=== PATIENT | male | born 1950 | race Caucasian/White ===

== ENCOUNTER 2016-05-19 09:41 | Inpatient (IN) | payer OTHER, MEDICARE ==
[~2016-05-19] VITALS: Ht 172.7 cm; Wt 83.9 kg
[2016-05-19 09:56] VITALS: BP 138/90; PULSE 76; RESP 16; TEMP 98.5; O2SAT 100
[2016-05-19] MEDS ORDERED: NACL 0.9% 1,000 ML IV ONE (10:15)
[2016-05-19 10:53] LABS: BASOPHILS % (AUTO) 0.4 % (0.0-2.0); EOSINOPHILS # (AUTO) 0.1 K/uL (0.0-0.4); EOSINOPHILS % (AUTO) 1.4 % (0.0-4.0); HEMATOCRIT 44.7 % (36-54); HEMOGLOBIN 14.6 g/dL (14.0-18.0); LYMPHOCYTES # (AUTO) 1.4 K/uL (1.0-5.5); LYMPHOCYTES % (AUTO) 18.7 % (20.5-51.5); MEAN CORPUSCULAR HEMOGLOBIN 27 pg (27-31); MEAN CORPUSCULAR HGB CONC 33 % (32-36); MEAN CORPUSCULAR VOLUME 82 fL (79.0-98.0); MONOCYTES # (AUTO) 0.5 K/uL (0.0-1.0); MONOCYTES % (AUTO) 6.5 % (1.7-9.3); NEUTROPHILS # (AUTO) 5.7 K/uL (1.8-7.7); PLATELET COUNT (AUTO) 182 K/uL (130-430); RED BLOOD CELL COUNT(AUTO) 5.46 MIL/uL (4.2-6.2); RED CELL DISTRIBUTION WIDTH 12.3 % (9.0-15.0); WHITE BLOOD COUNT (AUTO) 7.7 K/uL (4.8-10.8)
[2016-05-19 11:04] LABS: CALCIUM 9.6 mg/dL (8.4-11.0); CREATININE 2.09 mg/dL (0.55-1.30)
[2016-05-19 11:19] LABS: ALBUMIN 3.4 g/dL (3.4-4.8); TOTAL BILIRUBIN 0.3 mg/dL (0.0-1.0); TOTAL PROTEIN, SERUM 7.4 g/dL (6.4-8.3)
[2016-05-19] MEDS ORDERED: GLIP-172 PO (12:11)
[2016-05-19] MEDS ORDERED: CALC-1094 PO (12:11)
[2016-05-19] MEDS ORDERED: CHLO50TA18 PO (12:11)
[2016-05-19] MEDS ORDERED: SAXA2.5T PO (12:11)
[2016-05-19] MEDS ORDERED: CHOL2000 PO (12:11)
[2016-05-19] MEDS ORDERED: NPH,100V SUBCUT (12:11)
[2016-05-19] MEDS ORDERED: CLON1TAB4 PO (12:11)
[2016-05-19] MEDS ORDERED: ASPI-859 PO (12:11)
[2016-05-19] MEDS ORDERED: LOSA50TA20 PO (12:11)
[2016-05-19] MEDS ORDERED: COLE1TAB4 PO (12:11)
[2016-05-19] MEDS ORDERED: NOR10 PO (12:11)
[2016-05-19 13:41] VITALS: BP 161/83; PULSE 74; RESP 18; TEMP 98.6; O2SAT 97
[2016-05-19] MEDS: clonazePAM 0.5 MG TABLET PO SCH ×2 (15:26→21:00)
[2016-05-19 16:58] VITALS: BP 185/86; PULSE 71; RESP 15; TEMP 97.6; O2SAT 97
[2016-05-19] MEDS ORDERED: ATORVASTATIN 20 MG TABLET PO ONE (18:30)
[2016-05-19 20:00] VITALS: BP 157/77; PULSE 70; RESP 19; TEMP 99.1; O2SAT 95
[2016-05-19] MEDS: glipiZIDE XL 5 MG TAB ( GLUCOTROL XL) PO SCH (20:58)
[2016-05-19] MEDS: METOPROLOL TARTRATE 25 MG TABLET PO SCH (20:58)
[2016-05-19] MEDS ORDERED: COLESTIPOL HCL 1 GM PO SCH (21:00)
[2016-05-20 01:06] VITALS: BP 150/60; PULSE 58; RESP 18; TEMP 96.5; O2SAT 93
[2016-05-20 03:29] VITALS: BP 141/73; PULSE 58; RESP 18; TEMP 97.9; O2SAT 97
[2016-05-20] MEDS ORDERED: NPH,100V11 SUBCUT ×2 (03:42→03:43)
[2016-05-20 07:52] VITALS: BP 161/78; PULSE 75; RESP 18; TEMP 97.2; O2SAT 97
[2016-05-20] MEDS ORDERED: CHOLECALCIFEROL (VITAMIN D3) 2,000 UNIT TABLET PO SCH (09:00)
[2016-05-20] MEDS ORDERED: CHLORTHALIDONE 25 MG TABLET (HYGROTON) PO SCH (09:00)
[2016-05-20] MEDS ORDERED: amLODIPine BESYLATE 10 MG TABLET PO SCH (09:00)
[2016-05-20] MEDS ORDERED: CALCIUM CARBONATE/VITAMIN D3 1 TAB TABLET PO SCH (09:00)
[2016-05-20] MEDS ORDERED: SAXAGLIPTIN HYDROCHLORIDE 2.5 MG PO SCH (09:00)
[2016-05-20] MEDS ORDERED: LOSARTAN POTASSIUM 50 MG TABLET (COZAAR) PO SCH (09:00)
[2016-05-20] MEDS ORDERED: ATORVASTATIN 20 MG TABLET PO SCH (09:00)
[2016-05-20] MEDS ORDERED: INSULIN NPH 100 UNITS/ML 10 ML VIAL SUBCUT SCH (09:00)
[2016-05-20] MEDS ORDERED: ASPIRIN 81 MG TABLET(ECOTRIN) PO SCH (09:00)
[2016-05-20] MEDS: glipiZIDE XL 5 MG TAB ( GLUCOTROL XL) PO SCH (09:37)
[2016-05-20] MEDS: clonazePAM 0.5 MG TABLET PO SCH ×2 (09:37→15:15)
[2016-05-20] MEDS: METOPROLOL TARTRATE 25 MG TABLET PO SCH (09:39)
[2016-05-20 12:00] VITALS: BP 145/84; PULSE 55; RESP 18; TEMP 97; O2SAT 96
[2016-05-20] MEDS ORDERED: REGADENOSON 0.4 MG/5 ML SYRINGE IVP ONE (14:00)
[2016-05-20 16:00] VITALS: BP 137/68; PULSE 62; RESP 18; TEMP 98.2; O2SAT 98
== END 2016-05-20 18:05 | disposition home or self-care (01) | DRG 68 ==
LOC: SED 09:41 → SMU 12:25 → STU 13:30
PROVIDERS: ADMIT Family Medicine; ATTEND Family Medicine
DX: I65.21 Occlusion and stenosis of right carotid artery (principal); N17.9 Acute kidney failure, unspecified; E11.22 Type 2 diabetes mellitus with diabetic chronic kidney disease; I12.9 Hypertensive chronic kidney disease with stage 1 through stage 4 chronic kidney disease, or unspecified chronic kidney disease; E78.5 Hyperlipidemia, unspecified; F41.9 Anxiety disorder, unspecified; N18.9 Chronic kidney disease, unspecified; I25.10 Atherosclerotic heart disease of native coronary artery without angina pectoris; Z87.891 Personal history of nicotine dependence; Z88.8 Allergy status to other drugs, medicaments and biological substances
CPT/HCPCS: 36415; 70450-TC; 71010; 76770; 80053; 82962; 83036; 83605; 84484; 85025; 87040-TC; 93005; 93017; 93306; 93880; 96360; 99285; A9500; J1815; J2785; J7030

== ENCOUNTER 2016-12-27 14:47 | Emergency (ER) | payer OTHER, MEDICARE ==
[~2016-12-27] VITALS: Ht 175.3 cm; Wt 86.2 kg
[~2016-12-27 14:47] MED LIST: ASPI-859 PO; CALC-1094 PO; CHLO50TA18 PO; CHOL2000 PO; CLON1TAB4 PO; COLE1TAB4 PO; GLIP-172 PO; LOSA50TA20 PO; NOR10 PO; NPH,100V11 SUBCUT; SAXA2.5T PO
[2016-12-27 14:50] VITALS: BP_SYST 157
--- NOTE | 2016-12-27 15:38 | NUR ---
Patient to ED bed 3, gown on, placed on monitoring analyst, bp cuff and pulse ox to patient. Received report from JOSE Mayes.
--- NOTE | 2016-12-27 15:39 | NUR ---
DR BENJAMIN AT BEDSIDE FOR EVALUATION
--- NOTE | 2016-12-27 15:41 | NUR ---
Patient, awake, alert and oriented x 4, BIB from home for back pain. Patient presents right lower back pain x 1 week. Patient states he has had right lower back pain for the past week. Denies chest pain, shortness of breath, chills and fever at this time. No other complaints/injuries per patient, none noted.
[2016-12-27] MEDS: DEXAMETHASONE SOD PHOSPHATE 4 MG/ML VIAL IM ONE ×2 (16:15→16:56)
[2016-12-27] MEDS: BUPIVACAINE /PF 0.25% 30 ML VIAL INJ ONE ×2 (16:16→16:56)
--- NOTE | 2016-12-27 16:40 | NUR ---
Off unit to radiology.
--- NOTE | 2016-12-27 16:48 | NUR ---
Patient back to ED room 3 from radiology, tolerated well. No signs of distress, vss noted.
--- NOTE | 2016-12-27 16:55 | NUR ---
Dr. Yan at bedside administering medication.
--- NOTE | 2016-12-27 17:00 | NUR ---
Patient returned to unit, tolerated well. No signs of distress, vss noted.
[2016-12-27 18:33] VITALS: BP_SYST 152
--- NOTE | 2016-12-27 18:35 | NUR ---
Patient given written and verbal discharge instructions and verbalizes understanding. ER MD discussed with patient the results and treatment provided. Patient in stable condition. ID arm band removed. IV catheter removed intact and dressing applied, no active bleeding. Rx of Tylenol and Flexeril given. Patient educated on pain management and to follow up with PMD. Pain Scale 2/10. Opportunity for questions provided and answered.
== END 2016-12-27 18:33 | disposition home or self-care (01) ==
LOC: SED 14:47
DX: S39.012A Strain of muscle, fascia and tendon of lower back, initial encounter (principal); E11.9 Type 2 diabetes mellitus without complications; I10 Essential (primary) hypertension; E78.5 Hyperlipidemia, unspecified; Z79.4 Long term (current) use of insulin; X58.XXXA Exposure to other specified factors, initial encounter; Y93.89 Activity, other specified; Y92.89 Other specified places as the place of occurrence of the external cause; Y99.8 Other external cause status
CPT/HCPCS: 72131; 96372; 99284; J1100; J3490

== ENCOUNTER 2016-12-28 09:45 | Emergency (ER) | payer OTHER, MEDICARE ==
[~2016-12-28] VITALS: Ht 175.3 cm; Wt 86.2 kg
[2016-12-28 09:45] VITALS: BP_SYST 143
[2016-12-28 11:22] VITALS: BP_SYST 143
== END 2016-12-28 11:22 | disposition home or self-care (01) ==
LOC: SED 09:45
DX: M54.30 Sciatica, unspecified side (principal); E11.9 Type 2 diabetes mellitus without complications; I10 Essential (primary) hypertension; E78.5 Hyperlipidemia, unspecified; Z79.4 Long term (current) use of insulin; Z79.899 Other long term (current) drug therapy
CPT/HCPCS: 99281

== ENCOUNTER 2016-12-29 05:44 | Emergency (ER) | payer OTHER, MEDICARE ==
[~2016-12-29] VITALS: Ht 175.3 cm; Wt 86.2 kg
[2016-12-29 05:53] VITALS: BP_SYST 155
--- NOTE | 2016-12-29 05:53 | NUR ---
Patient to ER bed 8 to gown for evaluation. Side rails up. Report given to JOSE BENSON.
--- NOTE | 2016-12-29 06:00 | NUR ---
Patient to ER C/O severe 10/10 low back pain right side. Patient states that she wa sseen in [facility] ER and was promised nerve block shots. Patient ambulated with steady gait to ER bed. AAOx4, unlabored breathing, no signs of acute distress.
--- NOTE | 2016-12-29 06:09 | NUR ---
ER Osea at bedside evaluating the patient
[2016-12-29] MEDS ORDERED: BUPIVACAINE /PF 0.25% 30 ML VIAL INJ ONE (06:45)
[2016-12-29] MEDS ORDERED: DEXAMETHASONE SOD PHOSPHATE 4 MG/ML VIAL IM ONE (06:45)
--- NOTE | 2016-12-29 07:24 | NUR ---
Patient reports pain 0/10 15 minutes after administration of Decadron & Marcaine. No adverse reactions noted. Will continue to monitor.
[2016-12-29 07:25] VITALS: BP_SYST 134
--- NOTE | 2016-12-29 07:25 | NUR ---
Patient given written and verbal discharge instructions and verbalizes understanding. ER MD Yan discussed with patient the results and treatment provided. Patient in stable condition. ID arm band removed. Patient educated on pain management and to follow up with PMD. Pain Scale 0/10. Opportunity for questions provided and answered.
== END 2016-12-29 07:25 | disposition home or self-care (01) ==
LOC: SED 05:44
DX: G89.29 Other chronic pain (principal); M54.5 Low back pain; E11.9 Type 2 diabetes mellitus without complications; I10 Essential (primary) hypertension; E78.5 Hyperlipidemia, unspecified; Z79.899 Other long term (current) drug therapy
CPT/HCPCS: 93005; 96372; 99283; J1100; J3490

== ENCOUNTER 2016-12-31 05:34 | Emergency (ER) | payer OTHER, MEDICARE ==
[~2016-12-31] VITALS: Ht 175.3 cm; Wt 86.2 kg
[2016-12-31 05:38] VITALS: BP_SYST 179
--- NOTE | 2016-12-31 05:39 | NUR ---
Placed in room 07. To gown for exam. Side rails up. Report given to JOSE Mckinney.
--- NOTE | 2016-12-31 05:40 | NUR ---
Patient AAOx4, ambulatory with steady gait. Patient states having pain to right lower back which extends down to right foot. Patient states pain is sharp sensation with pain scale 7/10, states pain has been present for approximately 1 month prior to ER visit. Patient denies any mechanism of injury to pain area. Patient denies any other complaints.
--- NOTE | 2016-12-31 05:43 | NUR ---
ER Dr. Yan at bedside examining patient.
[2016-12-31] MEDS ORDERED: DEXAMETHASONE SOD PHOSPHATE 4 MG/ML VIAL IM ONE (06:00)
[2016-12-31] MEDS ORDERED: BUPIVACAINE /PF 0.25% 30 ML VIAL INJ ONE (06:00)
--- NOTE | 2016-12-31 06:01 | NUR ---
IM injection administered by MD. Patient tolerated procedure well.
[2016-12-31 06:11] VITALS: BP_SYST 162
--- NOTE | 2016-12-31 06:11 | NUR ---
Patient given written and verbal discharge instructions and verbalizes understanding. ER MD discussed with patient the results and treatment provided. Patient in stable condition. ID arm band removed. Patient educated on pain management and to follow up with PMD. Pain Scale 0/10. Opportunity for questions provided and answered.
== END 2016-12-31 06:11 | disposition home or self-care (01) ==
LOC: SED 05:34
DX: G89.29 Other chronic pain (principal); M54.5 Low back pain; E11.9 Type 2 diabetes mellitus without complications; I10 Essential (primary) hypertension; E78.5 Hyperlipidemia, unspecified; Z88.8 Allergy status to other drugs, medicaments and biological substances; Z79.4 Long term (current) use of insulin; Z79.899 Other long term (current) drug therapy
CPT/HCPCS: 20552; 99284; J1100

== ENCOUNTER 2018-09-09 19:51 | Inpatient (IN) | payer MEDICARE, OTHER ==
[~2018-09-09] VITALS: Ht 175.3 cm; Wt 86.8 kg
[~2018-09-09 19:51] MED LIST changes: +CHLO50TA PO; -CHLO50TA18 PO; +CLON1TAB12 PO; -CLON1TAB4 PO; -GLIP-172 PO; +GLIP10TA21 PO; -LOSA50TA20 PO; +LOSA50TA28 PO
[2018-09-09 19:55] VITALS: BP_SYST 197
[2018-09-09] MEDS ORDERED: NACL 0.9% 1,000 ML IV ONE (22:35)
[2018-09-09] MEDS ORDERED: PANTOPRAZOLE SODIUM 40 MG/VIAL (PROTONIX) IVP ONE (22:45)
[2018-09-09] MEDS ORDERED: MAG-AL HYDROX/SIMETH 30 ML UDC PO ONE (22:45)
[2018-09-09] MEDS ORDERED: DICYCLOMINE HCL 10 MG/5 ML SOLUTION PO ONE (22:45)
[2018-09-09] MEDS ORDERED: LIDOCAINE VISCOUS 2%, 15 ML UDC MM ONE (22:45)
[2018-09-09 23:04] LABS: BASOPHILS % (AUTO) 0.4 % (0.0-2.0); EOSINOPHILS # (AUTO) 0.1 K/uL (0.0-0.4); EOSINOPHILS % (AUTO) 0.6 % (0.0-4.0); HEMATOCRIT 41.8 % (36-54); HEMOGLOBIN 13.8 g/dL (14.0-18.0); LYMPHOCYTES # (AUTO) 2.1 K/uL (1.0-5.5); LYMPHOCYTES % (AUTO) 18.7 % (20.5-51.5); MEAN CORPUSCULAR HEMOGLOBIN 28 pg (27-31); MEAN CORPUSCULAR HGB CONC 33 % (32-36); MEAN CORPUSCULAR VOLUME 83 fL (79.0-98.0); MONOCYTES # (AUTO) 0.7 K/uL (0.0-1.0); MONOCYTES % (AUTO) 6.5 % (1.7-9.3); NEUTROPHILS # (AUTO) 8.1 K/uL (1.8-7.7); NEUTROPHILS % (AUTO) 73.8 % (40.0-70.0); PLATELET COUNT (AUTO) 261 K/uL (130-430); RED BLOOD CELL COUNT(AUTO) 5.01 MIL/uL (4.2-6.2); RED CELL DISTRIBUTION WIDTH 13.7 % (9.0-15.0)
[2018-09-09 23:16] LABS: POTASSIUM 3.8 mmol/L (3.5-5.1)
[2018-09-09 23:28] LABS: CALCIUM 10.4 mg/dL (8.4-11.0); CREATININE 1.91 mg/dL (0.55-1.30)
[2018-09-09 23:36] LABS: ALBUMIN 3.5 g/dL (3.4-4.8); TOTAL BILIRUBIN 0.4 mg/dL (0.0-1.0)
[2018-09-09] MEDS ORDERED: ASPIRIN 81 MG TAB.CHEW PO ONE (23:45)
[2018-09-10] MEDS ORDERED: LIP40 PO (00:27)
[2018-09-10] MEDS ORDERED: ONDANSETRON HCL 4 MG/2 ML VIAL IVP PRN (00:30)
[2018-09-10] MEDS ORDERED: ACETAMINOPHEN 325 MG TABLET PO PRN (00:30)
[2018-09-10] MEDS ORDERED: FINA5TAB3 PO (00:30)
[2018-09-10] MEDS ORDERED: MORPHINE 2 MG/ML INJ. SYRINGE IVP PRN (00:30)
[2018-09-10 01:03] VITALS: BP_SYST 157
[2018-09-10] MEDS ORDERED: TEMAZEPAM 15 MG CAPSULE PO PRN (02:15)
[2018-09-10 07:41] VITALS: BP_SYST 142
[2018-09-10] MEDS ORDERED: INSULIN REGULAR, HUMAN 100 UNITS/ML, 10 ML VIAL (novoLIN R) SUBCUT PRN (08:30)
[2018-09-10 08:32] LABS: CALCIUM 9.7 mg/dL (8.4-11.0); CREATININE 1.83 mg/dL (0.55-1.30)
[2018-09-10 08:37] LABS: BASOPHILS % (AUTO) 0.5 % (0.0-2.0); EOSINOPHILS # (AUTO) 0.1 K/uL (0.0-0.4); EOSINOPHILS % (AUTO) 1.3 % (0.0-4.0); HEMATOCRIT 41.5 % (36-54); HEMOGLOBIN 13.7 g/dL (14.0-18.0); LYMPHOCYTES # (AUTO) 1.9 K/uL (1.0-5.5); LYMPHOCYTES % (AUTO) 20.1 % (20.5-51.5); MEAN CORPUSCULAR HEMOGLOBIN 28 pg (27-31); MEAN CORPUSCULAR HGB CONC 33 % (32-36); MEAN CORPUSCULAR VOLUME 83 fL (79.0-98.0); MONOCYTES # (AUTO) 0.7 K/uL (0.0-1.0); MONOCYTES % (AUTO) 7.5 % (1.7-9.3); NEUTROPHILS # (AUTO) 6.6 K/uL (1.8-7.7); NEUTROPHILS % (AUTO) 70.6 % (40.0-70.0); PLATELET COUNT (AUTO) 252 K/uL (130-430); RED BLOOD CELL COUNT(AUTO) 4.98 MIL/uL (4.2-6.2); RED CELL DISTRIBUTION WIDTH 13.8 % (9.0-15.0); WHITE BLOOD COUNT (AUTO) 9.4 K/uL (4.8-10.8)
[2018-09-10 08:41] LABS: ALBUMIN 3.3 g/dL (3.4-4.8); TOTAL BILIRUBIN 0.3 mg/dL (0.0-1.0)
[2018-09-10] MEDS: ENOXAPARIN SODIUM 40 MG/0.4 ML SYRINGE SUBCUT SCH (08:56)
[2018-09-10] MEDS ORDERED: GLUCOSE 15 GM GEL (in 37.5 GM TUBE) PO PRN (09:00)
[2018-09-10] MEDS: CHLORTHALIDONE 25 MG TABLET (HYGROTON) PO SCH (09:00)
[2018-09-10] MEDS ORDERED: DEXTROSE 50%-WATER 50 ML DISP.SYRIN IVP PRN (09:00)
[2018-09-10] MEDS ORDERED: D5W 1,000 ML IV PRN (09:00)
[2018-09-10] MEDS ORDERED: PANTOPRAZOLE SODIUM 40 MG/VIAL (PROTONIX) IVP ONE (09:00)
[2018-09-10] MEDS: ASPIRIN 81 MG TAB.CHEW PO SCH (09:00)
[2018-09-10] MEDS ORDERED: ASPIRIN 325 MG TABLET (ECOTRIN) PO SCH (09:00)
[2018-09-10] MEDS: ATORVASTATIN 20 MG TABLET PO SCH (10:22)
[2018-09-10] MEDS: amLODIPine BESYLATE 10 MG TABLET PO SCH (10:24)
[2018-09-10] MEDS: clonazePAM 0.5 MG TABLET PO SCH ×3 (10:25→20:05)
[2018-09-10] MEDS: LOSARTAN POTASSIUM 50 MG TABLET (COZAAR) PO SCH ×2 (10:25→20:05)
[2018-09-10] MEDS: glipiZIDE XL 5 MG TAB ( GLUCOTROL XL) PO SCH ×2 (10:26→20:05)
[2018-09-10] MEDS: FINASTERIDE 5 MG TABLET (PROSCAR) PO SCH (10:26)
[2018-09-10] MEDS: INSULIN NPH 100 UNITS/ML 10 ML VIAL SUBCUT SCH (10:47)
[2018-09-10 11:10] VITALS: BP_SYST 147
[2018-09-10 15:43] VITALS: BP_SYST 144
[2018-09-10] MEDS ORDERED: INSULIN NPH 100 UNITS/ML 10 ML VIAL SUBCUT SCH (18:00)
[2018-09-10 20:00] VITALS: BP_SYST 159
[2018-09-10] MEDS: CARVEDILOL 3.125 MG TABLET (COREG) PO SCH (20:04)
[2018-09-11 00:35] VITALS: BP_SYST 145
[2018-09-11 06:51] LABS: BASOPHILS # (AUTO) 0.1 K/uL (0.0-0.2); BASOPHILS % (AUTO) 0.6 % (0.0-2.0); EOSINOPHILS # (AUTO) 0.1 K/uL (0.0-0.4); EOSINOPHILS % (AUTO) 1.1 % (0.0-4.0); HEMATOCRIT 41.7 % (36-54); LYMPHOCYTES # (AUTO) 1.7 K/uL (1.0-5.5); LYMPHOCYTES % (AUTO) 19.9 % (20.5-51.5); MEAN CORPUSCULAR HEMOGLOBIN 28 pg (27-31); MEAN CORPUSCULAR HGB CONC 34 % (32-36); MEAN CORPUSCULAR VOLUME 83 fL (79.0-98.0); MONOCYTES # (AUTO) 0.6 K/uL (0.0-1.0); MONOCYTES % (AUTO) 7.5 % (1.7-9.3); NEUTROPHILS # (AUTO) 6.1 K/uL (1.8-7.7); NEUTROPHILS % (AUTO) 70.9 % (40.0-70.0); PLATELET COUNT (AUTO) 252 K/uL (130-430); RED BLOOD CELL COUNT(AUTO) 5.01 MIL/uL (4.2-6.2); RED CELL DISTRIBUTION WIDTH 13.8 % (9.0-15.0); WHITE BLOOD COUNT (AUTO) 8.6 K/uL (4.8-10.8)
[2018-09-11 08:00] VITALS: BP_SYST 124
[2018-09-11 08:32] LABS: CALCIUM 9.6 mg/dL (8.4-11.0); CREATININE 1.74 mg/dL (0.55-1.30); POTASSIUM 3.8 mmol/L (3.5-5.1)
[2018-09-11] MEDS: LOSARTAN POTASSIUM 50 MG TABLET (COZAAR) PO SCH (08:39)
[2018-09-11] MEDS: ASPIRIN 81 MG TAB.CHEW PO SCH (08:39)
[2018-09-11] MEDS: FINASTERIDE 5 MG TABLET (PROSCAR) PO SCH (08:39)
[2018-09-11 08:40] LABS: ALBUMIN 3.3 g/dL (3.4-4.8); TOTAL BILIRUBIN 0.3 mg/dL (0.0-1.0)
[2018-09-11] MEDS: ATORVASTATIN 20 MG TABLET PO SCH (08:40)
[2018-09-11] MEDS: amLODIPine BESYLATE 10 MG TABLET PO SCH (08:40)
[2018-09-11] MEDS: CHLORTHALIDONE 25 MG TABLET (HYGROTON) PO SCH (08:41)
[2018-09-11] MEDS: glipiZIDE XL 5 MG TAB ( GLUCOTROL XL) PO SCH (08:42)
[2018-09-11] MEDS: clonazePAM 0.5 MG TABLET PO SCH (08:42)
[2018-09-11] MEDS: CARVEDILOL 3.125 MG TABLET (COREG) PO SCH (08:43)
[2018-09-11] MEDS: ENOXAPARIN SODIUM 40 MG/0.4 ML SYRINGE SUBCUT SCH (08:47)
[2018-09-11] MEDS: INSULIN NPH 100 UNITS/ML 10 ML VIAL SUBCUT SCH (08:48)
[2018-09-11] MEDS ORDERED: PANTOPRAZOLE SODIUM 40 MG/VIAL (PROTONIX) IVP SCH (09:00)
[2018-09-11 11:24] VITALS: BP_SYST 141
[2018-09-11 12:17] VITALS: BP_SYST 141
[2018-09-14 11:10] LABS: % FREE PSA 33.3 %; FREE PSA 0.1 ng/mL; PROSTATE SPECIFIC AG TOTAL 0.3 ng/mL (0.0-4.0)
== END 2018-09-11 12:45 | disposition home or self-care (01) | DRG 392 ==
LOC: SED 19:51 → STU 09-10 00:18
PROVIDERS: ADMIT Internal Medicine; ATTEND Internal Medicine
DX: K21.9 Gastro-esophageal reflux disease without esophagitis (principal); E11.22 Type 2 diabetes mellitus with diabetic chronic kidney disease; E11.51 Type 2 diabetes mellitus with diabetic peripheral angiopathy without gangrene; E78.5 Hyperlipidemia, unspecified; I12.9 Hypertensive chronic kidney disease with stage 1 through stage 4 chronic kidney disease, or unspecified chronic kidney disease; M43.6 Torticollis; R13.10 Dysphagia, unspecified; N18.9 Chronic kidney disease, unspecified; N40.0 Benign prostatic hyperplasia without lower urinary tract symptoms; Z88.8 Allergy status to other drugs, medicaments and biological substances; Z79.899 Other long term (current) drug therapy
CPT/HCPCS: 36415; 70490; 71045; 76770; 80053; 80061; 82550-TC; 82962; 84153; 84484; 85025; 93005; 96361; 96374; 99285; C9113; G0378; J1650; J1815; J2001

== ENCOUNTER 2021-12-27 07:52 | Emergency (ER) | payer OTHER ==
[~2021-12-27] VITALS: Ht 182.9 cm; Wt 88.0 kg
[~2021-12-27 07:52] MED LIST changes: -CALC-1094 PO; +CALC-1312 PO; +FINA5TAB3 PO; +LIP40 PO
[2021-12-27 08:04] VITALS: BP_SYST 164
--- NOTE | 2021-12-27 08:08 | NUR ---
BIB BLS FROM [facility] FOR ABDOMINAL PAIN AND LETHARGY. PT AAOX2. NAD NOTED. REPORTS ABDOMINAL PAIN 8/10 WITH NAUSEA, PT STATES HE HAS DRY HEAVES. DENIES ANY DIARRHEA. HX OF DM WITH GLUCOSE THIS AM 113. DR. CAI SEEN PT WHILE ON GURNEY IN MAIN ED.
[2021-12-27 08:34] LABS: BASOPHILS % (AUTO) 0.5 % (0.0-2.0); EOSINOPHILS % (AUTO) 0.1 % (0.0-4.0); HEMATOCRIT 38.9 % (36-54); LYMPHOCYTES # (AUTO) 1.1 K/uL (1.0-5.5); LYMPHOCYTES % (AUTO) 11.6 % (20.5-51.5); MEAN CORPUSCULAR VOLUME 85 fL (79.0-98.0); NEUTROPHILS % (AUTO) 76.8 % (40.0-70.0); PLATELET COUNT (AUTO) 300 K/uL (130-430); RED BLOOD CELL COUNT(AUTO) 4.56 MIL/uL (4.2-6.2); RED CELL DISTRIBUTION WIDTH 13.8 % (9.0-15.0); WHITE BLOOD COUNT (AUTO) 9.1 K/uL (4.8-10.8)
--- NOTE | 2021-12-27 08:58 | NUR ---
PT NOW MORE AWAKE AND ALERT SINCE PLACED IN BED. PT AAO X 4. PT KNOWS TODAY IS HIS BIRTHDAY. PT REPORTS BEING AT [facility] FOR APPROX 9 DAYS, HE WAS SENT THERE FROM [facility] IN [place] WITH DX OF HERNIATED DISC OF UNKNOWN VERTEBRAE. PT WITH HX OF MULTIPLE BACK SURGERIES TO LOWER BACK AND C-SPINE. 20G IV ACCESS INSERTED TO LEFT AC. BLOOD DRAWN AND SENT TO LAB. PENDING RESULTS AND FURTHER ORDERS FROM DR. CAI. PLACED ON OPERATIONS SUPPORT COORDINATOR WITH NSR NOTED 81. ON ROOM AIR WITH 95% O2 SAT. BP STABLE 145/74. NAD NOTED. WILL CONT TO MONITOR.
[2021-12-27 09:06] LABS: ANION GAP 6 (5-15); CALCIUM 8.7 mg/dL (8.4-11.0); CHLORIDE 94 mmol/L (98-107); CREATININE 0.83 mg/dL (0.55-1.30); GLUCOSE 119 mg/dL (70-99); POTASSIUM 4.2 mmol/L (3.5-5.1); SODIUM SERUM 129 mmol/L (136-145); UREA NITROGEN, BLOOD 14 mg/dL (8-21)
[2021-12-27 09:14] LABS: ALANINE AMINOTRANSFERASE 33 U/L (12-78); ALBUMIN 2.8 g/dL (3.4-4.8); AMYLASE 55 U/L (0-100); ASPARTATE AMINOTRANSFERASE 34 U/L (10-37); C-REACTIVE PROTEIN QUANT 5.3 mg/dL (0-0.5); LACTATE DEHYDROGENASE 197 U/L (85-227); LIPASE 183 U/L (73-393); TOTAL BILIRUBIN 0.3 mg/dL (0.0-1.0)
[2021-12-27] MEDS ORDERED: ONDA-8 TL (09:52)
[2021-12-27] MEDS ORDERED: IBUP-1969 PO (09:52)
[2021-12-27] MEDS ORDERED: ONDANSETRON 4 MG ODT TAB PO ONE (10:00)
[2021-12-27] MEDS ORDERED: IBUPROFEN 800 MG TABLET PO ONE (10:00)
[2021-12-27] MEDS ORDERED: HYDROcodone/ACETAMIN 10-325 MG TAB PO ONE ×2 (10:15→15:00)
--- NOTE | 2021-12-27 10:23 | NUR ---
DR. CAI ORDERED FOR STRAIGHT CATH FOR UA. PT REFUSED STRAIGHT CATH. PT STATES HIS ABDOMINAL PAIN SUBSIDED AND HE HAS BACK PAIN 7-11/26. REFUSED IBUPROFEN. PT STATES NORCO 10 HELP HIM, BUT NOT MORPHINE. NORCO 10 GIVEN PO WITH ZOFRAN SL. PT DISCHARGED BACK TO [facility]. TRANSPORT SET UP WITH [employer] MANA[employer] TIME AT 1400.
--- NOTE | 2021-12-27 10:30 | NUR ---
Primary RN called report to Robbin Lundberg
--- NOTE | 2021-12-27 10:45 | NUR ---
Report rcvd from RN at bedside
--- NOTE | 2021-12-27 11:01 | NUR ---
Patient remains stable in no acute distress and or discomfort.
--- NOTE | 2021-12-27 12:00 | NUR ---
Repositioned with pillow support, bed low and locked for safety.
--- NOTE | 2021-12-27 12:54 | NUR ---
Fluids offered PO, patient tolerated well.
--- NOTE | 2021-12-27 14:03 | NUR ---
CALL RECEIVED FROM [employer], DELAY IN [employer] ADMINISTRATOR FOR PT UNTIL 1600
--- NOTE | 2021-12-27 14:56 | NUR ---
10 Back Pain reported, aware and new order rcvd
[2021-12-27] MEDS ORDERED: HYDROcodone/ACETAMIN 10-325 MG TAB ONE (14:58)
--- NOTE | 2021-12-27 16:06 | NUR ---
Ambulance arrived and report given at bedside to Sonal Mckinney, all cares endorsed
--- NOTE | 2021-12-27 16:06 | NUR ---
Patient given written and verbal discharge instructions and verbalizes understanding. ER MD discussed with patient the results and treatment provided. Patient in stable condition. ID arm band removed. IV catheter removed intact and dressing applied, no active bleeding. Patient educated on pain management and to follow up with PMD. Pain Scale 0/10 Opportunity for questions provided and answered. Medication side effect fact sheet provided.
[2021-12-27 16:07] VITALS: BP_SYST 123
== END 2021-12-27 16:06 | disposition home or self-care (01) ==
LOC: SED 07:52
DX: R10.84 Generalized abdominal pain (principal); E11.9 Type 2 diabetes mellitus without complications; I10 Essential (primary) hypertension; Z88.8 Allergy status to other drugs, medicaments and biological substances; Z79.4 Long term (current) use of insulin; Z79.899 Other long term (current) drug therapy
CPT/HCPCS: 99285; 74176; 80053; 82150; 83615; 83690; 85025; 86140; 84484; 36415; 76376; 83605; Q0162

== ENCOUNTER 2023-04-03 11:00 | Emergency (ER) | payer OTHER ==
[~2023-04-03] VITALS: Ht 175.3 cm; Wt 83.9 kg
[~2023-04-03 11:00] MED LIST changes: +FINA-37 PO; -FINA5TAB3 PO; +IBUP-1969 PO; +ONDA-8 TL
[2023-04-03 11:09] VITALS: BP_SYST 121; PULSE 85; RESP 19; TEMP 97.5; O2SAT 96
[2023-04-03] MEDS ORDERED: KETOROLAC TROMETHAMINE 30 MG VIAL IM ONE (12:00)
[2023-04-03] MEDS ORDERED: NAPR-1172 PO (13:14)
[2023-04-03] MEDS ORDERED: PERC10 PO (13:14)
== END 2023-04-03 13:25 | disposition home or self-care (01) ==
LOC: SED 11:00
DX: M77.12 Lateral epicondylitis, left elbow (principal); R60.9 Edema, unspecified; E11.9 Type 2 diabetes mellitus without complications; I10 Essential (primary) hypertension; Z88.8 Allergy status to other drugs, medicaments and biological substances; Z79.4 Long term (current) use of insulin; Z79.899 Other long term (current) drug therapy
CPT/HCPCS: 99285; 96374; 93971; 73080; J1885

== ENCOUNTER 2023-05-28 17:51 | Inpatient (IN) | payer OTHER ==
[~2023-05-28] VITALS: Ht 175.3 cm; Wt 89.8 kg
[~2023-05-28 17:51] MED LIST changes: +NAPR-1172 PO; +PERC10 PO
[2023-05-28 18:22] VITALS: BP_SYST 110; PULSE 100; RESP 18; TEMP 98; O2SAT 95
[2023-05-28 18:23] LABS: BASOPHILS # (AUTO) 0.1 K/uL (0.0-0.2); BASOPHILS % (AUTO) 0.7 % (0.0-2.0); EOSINOPHILS # (AUTO) 0.1 K/uL (0.0-0.4); EOSINOPHILS % (AUTO) 1.2 % (0.0-4.0); HEMOGLOBIN 14.2 g/dL (14.0-18.0); LYMPHOCYTES # (AUTO) 1.5 K/uL (1.0-5.5); LYMPHOCYTES % (AUTO) 16.5 % (20.5-51.5); MEAN CORPUSCULAR HEMOGLOBIN 29 pg (27-31); MEAN CORPUSCULAR HGB CONC 34 % (32-36); MEAN CORPUSCULAR VOLUME 84 fL (79.0-98.0); MONOCYTES # (AUTO) 0.7 K/uL (0.0-1.0); NEUTROPHILS % (AUTO) 74.6 % (40.0-70.0); PLATELET COUNT (AUTO) 239 K/uL (130-430); RED BLOOD CELL COUNT(AUTO) 4.99 MIL/uL (4.2-6.2); RED CELL DISTRIBUTION WIDTH 13.8 % (9.0-15.0); WHITE BLOOD COUNT (AUTO) 9.3 K/uL (4.8-10.8)
[2023-05-28 18:32] LABS: ANION GAP 12 (5-15); CALCIUM 9.1 mg/dL (8.4-11.0); CARBON DIOXIDE 20 mmol/L (23-29); CHLORIDE 106 mmol/L (98-107); GLUCOSE 242 mg/dL (74-106); POTASSIUM 4.4 mmol/L (3.5-5.1); SODIUM SERUM 138 mmol/L (136-145); UREA NITROGEN, BLOOD 48 mg/dL (8-21)
[2023-05-28] MEDS: NACL 0.9% 1,000 ML IV ONE ×2 (19:27→20:50)
[2023-05-28 20:29] LABS: BILIRUBIN,URINE NEGATIVE (NEGATIVE); BLOOD, URINE NEGATIVE (NEGATIVE); CLARITY/URINE CLEAR (CLEAR); COLOR,URINE YELLOW (YELLOW); GLUCOSE,URINE TRACE (NEGATIVE); KETONES,URINE NEGATIVE (NEGATIVE); LEUKOCYTE ESTERASE ,URINE NEGATIVE (NEGATIVE); NITRITE, URINE NEGATIVE (NEGATIVE); PROTEIN URINE 1+ (NEGATIVE); UROBILINOGEN,URINE 0.2 (0.2-1.0)
[2023-05-28 20:42] LABS: BACTERIA,URINE None Seen /HPF (None Seen); RBC,URINE NONE SEEN /HPF (0-3); WBC,URINE 0-3 /HPF (0-3)
[2023-05-28 20:43] LABS: MUCUS,URINE None Seen /LPF (None Seen)
[2023-05-28 22:29] VITALS: BP_SYST 132; PULSE 86; RESP 20; TEMP 97.7; O2SAT 98
[2023-05-28 22:57] VITALS: O2SAT 98
[2023-05-28 23:02] VITALS: O2SAT 98
[2023-05-28 23:07] VITALS: BP_SYST 132; PULSE 86; RESP 20; TEMP 97.7; O2SAT 98
[2023-05-28 23:08] VITALS: BP_SYST 131; PULSE 86; RESP 20; TEMP 97.7; O2SAT 98
[2023-05-29] VITALS (7 sets, daily range): BP systolic 117–162; PULSE 63–90; RESP 16–18; TEMP 97.4–98; O2SAT 92–98
[2023-05-29] MEDS ORDERED: OXYCODONE/ACETAMINOPHEN *10*mg/325 mg TABLET PO PRN (09:15)
[2023-05-29] MEDS ORDERED: ONDANSETRON 4 MG ODT TAB TL PRN (09:15)
[2023-05-29] MEDS: clonazePAM 0.5 MG TABLET PO ONE (10:20)
[2023-05-29] MEDS: amLODIPine BESYLATE 10 MG TABLET PO ONE (10:21)
[2023-05-29 10:45] LABS: ALANINE AMINOTRANSFERASE 28 U/L (12-78); ANION GAP 11 (5-15); ASPARTATE AMINOTRANSFERASE 15 U/L (10-37); CALCIUM 8.7 mg/dL (8.4-11.0); CARBON DIOXIDE 20 mmol/L (23-29); CHLORIDE 111 mmol/L (98-107); CREATININE 1.93 mg/dL (0.55-1.30); GLUCOSE 220 mg/dL (74-106); POTASSIUM 4.3 mmol/L (3.5-5.1); SODIUM SERUM 142 mmol/L (136-145); TOTAL BILIRUBIN 0.4 mg/dL (0.0-1.0); TOTAL PROTEIN, SERUM 6.4 g/dL (6.4-8.3); UREA NITROGEN, BLOOD 39 mg/dL (8-21)
[2023-05-29] MEDS: clonazePAM 0.5 MG TABLET PO SCH (14:51)
[2023-05-29] MEDS: glipiZIDE XL 5 MG TAB ( GLUCOTROL XL) PO SCH (17:40)
[2023-05-29] MEDS: SUCRALFATE 1 GM TABLET PO SCH (17:40)
[2023-05-29] MEDS: INSULIN NPH 100 UNITS/ML 10 ML VIAL SUBCUT SCH (18:20)
[2023-05-29] MEDS: LOSARTAN POTASSIUM 50 MG TABLET (COZAAR) PO SCH (22:46)
[2023-05-29] MEDS: ATORVASTATIN 20 MG TABLET PO SCH (22:50)
[2023-05-30] VITALS: BP_SYST 149; PULSE 80; RESP 18; TEMP 98.9; O2SAT 100
[2023-05-30 05:46] VITALS: BP_SYST 149; PULSE 80; RESP 18; TEMP 98.9; O2SAT 100
[2023-05-30 07:31] LABS: BASOPHILS # (AUTO) 0.1 K/uL (0.0-0.2); BASOPHILS % (AUTO) 0.7 % (0.0-2.0); EOSINOPHILS # (AUTO) 0.2 K/uL (0.0-0.4); EOSINOPHILS % (AUTO) 2.4 % (0.0-4.0); HEMOGLOBIN 12.7 g/dL (14.0-18.0); LYMPHOCYTES # (AUTO) 1.9 K/uL (1.0-5.5); MEAN CORPUSCULAR HEMOGLOBIN 28 pg (27-31); MEAN CORPUSCULAR HGB CONC 33 % (32-36); MEAN CORPUSCULAR VOLUME 84 fL (79.0-98.0); MONOCYTES # (AUTO) 0.7 K/uL (0.0-1.0); NEUTROPHILS # (AUTO) 4.5 K/uL (1.8-7.7); NEUTROPHILS % (AUTO) 61.9 % (40.0-70.0); PLATELET COUNT (AUTO) 185 K/uL (130-430); RED BLOOD CELL COUNT(AUTO) 4.53 MIL/uL (4.2-6.2); RED CELL DISTRIBUTION WIDTH 13.3 % (9.0-15.0); WHITE BLOOD COUNT (AUTO) 7.3 K/uL (4.8-10.8)
[2023-05-30 07:44] LABS: ANION GAP 11 (5-15); CALCIUM 9.2 mg/dL (8.4-11.0); CARBON DIOXIDE 21 mmol/L (23-29); CHLORIDE 113 mmol/L (98-107); CREATININE 1.79 mg/dL (0.55-1.30); GLUCOSE 151 mg/dL (74-106); POTASSIUM 4.3 mmol/L (3.5-5.1); SODIUM SERUM 145 mmol/L (136-145); UREA NITROGEN, BLOOD 35 mg/dL (8-21)
[2023-05-30 08:00] VITALS: BP_SYST 166; PULSE 88; RESP 20; TEMP 98.9; O2SAT 100
[2023-05-30] MEDS: ASPIRIN 81 MG TABLET(ECOTRIN) PO SCH (09:30)
[2023-05-30] MEDS: amLODIPine BESYLATE 10 MG TABLET PO SCH (09:30)
[2023-05-30] MEDS: PANTOPRAZOLE SODIUM 40 MG TAB PO SCH (09:30)
[2023-05-30] MEDS: FINASTERIDE 5 MG TABLET (PROSCAR) PO SCH (09:37)
[2023-05-30] MEDS: INSULIN NPH 100 UNITS/ML 10 ML VIAL SUBCUT SCH (09:40)
[2023-05-30 11:13] VITALS: BP_SYST 134; PULSE 79; RESP 15; TEMP 97.7; O2SAT 95
[2023-05-30 11:26] VITALS: BP_SYST 166; PULSE 88; RESP 20; TEMP 98.4; O2SAT 100
== END 2023-05-30 11:47 | disposition home or self-care (01) | DRG 684 ==
LOC: SED 17:51 → SMU 20:26
PROVIDERS: ADMIT Specialist; ATTEND Specialist
DX: N17.9 Acute kidney failure, unspecified (principal); F03.90 Unspecified dementia, unspecified severity, without behavioral disturbance, psychotic disturbance, mood disturbance, and anxiety; I12.9 Hypertensive chronic kidney disease with stage 1 through stage 4 chronic kidney disease, or unspecified chronic kidney disease; E11.22 Type 2 diabetes mellitus with diabetic chronic kidney disease; E86.0 Dehydration; N18.32 Chronic kidney disease, stage 3b; N40.0 Benign prostatic hyperplasia without lower urinary tract symptoms; E78.5 Hyperlipidemia, unspecified; Z88.8 Allergy status to other drugs, medicaments and biological substances; Z79.899 Other long term (current) drug therapy; Z79.4 Long term (current) use of insulin
CPT/HCPCS: 36415; 70450-TC; 76376; 76770; 80048; 80053; 81000; 81001; 81015; 82570; 84302; 85025; 96360; 97116-GP; 97163-GP; 97530-GP; 99285; J1815

== ENCOUNTER 2023-07-23 17:28 | Inpatient (IN) | payer OTHER ==
[~2023-07-23] VITALS: Ht 175.3 cm; Wt 72.6 kg
[~2023-07-23 17:28] MED LIST changes: -CHLO50TA PO; -IBUP-1969 PO; -NAPR-1172 PO; -PERC10 PO; -SAXA2.5T PO
[2023-07-23 17:30] VITALS: BP_SYST 145; PULSE 72; RESP 18; TEMP 98.3; O2SAT 98
[2023-07-23 18:22] LABS: BASOPHILS # (AUTO) 0.1 K/uL (0.0-0.2); BASOPHILS % (AUTO) 0.5 % (0.0-2.0); EOSINOPHILS # (AUTO) 0.1 K/uL (0.0-0.4); EOSINOPHILS % (AUTO) 1.1 % (0.0-4.0); HEMATOCRIT 35.4 % (36-54); HEMOGLOBIN 11.7 g/dL (14.0-18.0); LYMPHOCYTES # (AUTO) 1.5 K/uL (1.0-5.5); LYMPHOCYTES % (AUTO) 12.2 % (20.5-51.5); MEAN CORPUSCULAR HEMOGLOBIN 28 pg (27-31); MEAN CORPUSCULAR HGB CONC 33 % (32-36); MEAN CORPUSCULAR VOLUME 83 fL (79.0-98.0); MONOCYTES # (AUTO) 1.1 K/uL (0.0-1.0); MONOCYTES % (AUTO) 8.9 % (1.7-9.3); NEUTROPHILS # (AUTO) 9.8 K/uL (1.8-7.7); NEUTROPHILS % (AUTO) 77.3 % (40.0-70.0); PLATELET COUNT (AUTO) 279 K/uL (130-430); RED BLOOD CELL COUNT(AUTO) 4.26 MIL/uL (4.2-6.2); RED CELL DISTRIBUTION WIDTH 14.1 % (9.0-15.0); WHITE BLOOD COUNT (AUTO) 12.7 K/uL (4.8-10.8)
[2023-07-23 18:37] LABS: ANION GAP 12 (5-15); CALCIUM 9.4 mg/dL (8.4-11.0); CARBON DIOXIDE 20 mmol/L (23-29); CHLORIDE 102 mmol/L (98-107); CREATININE 2.68 mg/dL (0.55-1.30); GLUCOSE 261 mg/dL (74-106); POTASSIUM 4.2 mmol/L (3.5-5.1); PROTHROMBIN TIME 10.1 SECS (9.5-12.5); SODIUM SERUM 134 mmol/L (136-145); UREA NITROGEN, BLOOD 97 mg/dL (8-21)
[2023-07-23 18:42] LABS: ALANINE AMINOTRANSFERASE 29 U/L (12-78); ALBUMIN 2.6 g/dL (3.4-4.8); ASPARTATE AMINOTRANSFERASE 28 U/L (10-37); BILIRUBIN,DIRECT 0.2 mg/dL (0.0-0.3); TOTAL BILIRUBIN 0.6 mg/dL (0.0-1.0); TOTAL PROTEIN, SERUM 7.1 g/dL (6.4-8.3)
[2023-07-23] MEDS: MORPHINE 4 MG INJ. 4 MG/ML VIAL IVP ONE (18:59)
[2023-07-24] MEDS ORDERED: ONDANSETRON 4 MG ODT TAB TL PRN (10:00)
[2023-07-24] MEDS ORDERED: traMADol HCL HCL 50 MG TABLET (ULTRAM) ONE (11:30)
[2023-07-24] MEDS: ALBUMIN HUMAN 25% 50 ML IV SCH (11:40)
[2023-07-24 13:02] VITALS: BP_SYST 132; PULSE 98; RESP 16; TEMP 98.9; O2SAT 94
[2023-07-24] MEDS: traMADol HCL HCL 50 MG TABLET (ULTRAM) PO PRN (13:58)
[2023-07-24] MEDS ORDERED: clonazePAM 0.5 MG TABLET PO SCH (15:00)
[2023-07-24 15:28] VITALS: BP_SYST 132; PULSE 98; RESP 16; TEMP 98.9; O2SAT 94
[2023-07-24] MEDS: INSULIN REGULAR, HUMAN 100 UNITS/ML, 3 ML VIAL (humuLIN R) SUBCUT PRN (16:43)
[2023-07-24] MEDS: INSULIN NPH 100 UNITS/ML 10 ML VIAL SUBCUT SCH (16:45)
[2023-07-24 17:00] VITALS: BP_SYST 128; PULSE 91; RESP 16; TEMP 97.6; O2SAT 93
[2023-07-24 20:40] VITALS: BP_SYST 138; PULSE 96; RESP 18; TEMP 97.7; O2SAT 94
[2023-07-24 22:57] LABS: BILIRUBIN,URINE NEGATIVE (NEGATIVE); CLARITY/URINE CLOUDY (CLEAR); COLOR,URINE YELLOW (YELLOW); GLUCOSE,URINE TRACE (NEGATIVE); KETONES,URINE NEGATIVE (NEGATIVE); LEUKOCYTE ESTERASE ,URINE 2+ (NEGATIVE); NITRITE, URINE NEGATIVE (NEGATIVE); PH,URINE 5.5 (5.0-8.0); PROTEIN URINE TRACE (NEGATIVE); UROBILINOGEN,URINE 0.2 (0.2-1.0)
[2023-07-24 23:08] LABS: BLOOD, URINE TRACE (NEGATIVE)
[2023-07-24 23:20] LABS: WBC,URINE >100 /HPF (0-3)
[2023-07-24 23:21] LABS: BACTERIA,URINE MODERATE /HPF (None Seen); MUCUS,URINE None Seen /LPF (None Seen)
[2023-07-25 00:05] VITALS: BP_SYST 157; PULSE 99; RESP 18; TEMP 97.4; O2SAT 96
[2023-07-25 06:56] LABS: BASOPHILS % (AUTO) 0.3 % (0.0-2.0); EOSINOPHILS # (AUTO) 0.1 K/uL (0.0-0.4); EOSINOPHILS % (AUTO) 0.6 % (0.0-4.0); HEMOGLOBIN 11.9 g/dL (14.0-18.0); LYMPHOCYTES # (AUTO) 0.9 K/uL (1.0-5.5); LYMPHOCYTES % (AUTO) 6.9 % (20.5-51.5); MEAN CORPUSCULAR HEMOGLOBIN 28 pg (27-31); MEAN CORPUSCULAR HGB CONC 33 % (32-36); MEAN CORPUSCULAR VOLUME 84 fL (79.0-98.0); MONOCYTES # (AUTO) 1.3 K/uL (0.0-1.0); MONOCYTES % (AUTO) 9.1 % (1.7-9.3); NEUTROPHILS # (AUTO) 11.5 K/uL (1.8-7.7); NEUTROPHILS % (AUTO) 83.1 % (40.0-70.0); PLATELET COUNT (AUTO) 269 K/uL (130-430); RED BLOOD CELL COUNT(AUTO) 4.28 MIL/uL (4.2-6.2); RED CELL DISTRIBUTION WIDTH 14.1 % (9.0-15.0); WHITE BLOOD COUNT (AUTO) 13.8 K/uL (4.8-10.8)
[2023-07-25 07:23] LABS: ANION GAP 15 (5-15); CALCIUM 9.5 mg/dL (8.4-11.0); CARBON DIOXIDE 19 mmol/L (23-29); CHLORIDE 101 mmol/L (98-107); CREATININE 3.02 mg/dL (0.55-1.30); GLUCOSE 245 mg/dL (74-106); POTASSIUM 4.6 mmol/L (3.5-5.1); SODIUM SERUM 135 mmol/L (136-145)
[2023-07-25 07:39] LABS: UREA NITROGEN, BLOOD 116 mg/dL (8-21)
[2023-07-25 08:44] VITALS: BP_SYST 161; PULSE 109; RESP 19; TEMP 98.8; O2SAT 94
[2023-07-25 08:45] VITALS: O2SAT 95
[2023-07-25] MEDS: FINASTERIDE 5 MG TABLET (PROSCAR) PO SCH (10:59)
[2023-07-25] MEDS: ATORVASTATIN 20 MG TABLET PO SCH (10:59)
[2023-07-25] MEDS: amLODIPine BESYLATE 10 MG TABLET PO SCH (11:00)
[2023-07-25 11:02] VITALS: BP_SYST 154; PULSE 104; RESP 16; TEMP 97.4; O2SAT 95
[2023-07-25] MEDS: INSULIN NPH 100 UNITS/ML 10 ML VIAL SUBCUT SCH (11:02)
[2023-07-25] MEDS: 0.45% NACL 1,000 ML IV SCH (11:22)
[2023-07-25] MEDS: INSULIN GLARGINE 100 UNITS/ML, 10 ML VIAL SUBCUT ONE (14:00)
[2023-07-25] MEDS: clonazePAM 0.5 MG TABLET PO PRN (14:01)
[2023-07-25] MEDS: HYDROcodone/ACETAMIN 5-325 MG TAB (NORCO/ VICODIN) PO PRN (14:02)
[2023-07-25 15:36] VITALS: BP_SYST 148; PULSE 92; RESP 16; TEMP 98.4; O2SAT 95
[2023-07-25 21:30] VITALS: BP_SYST 161; PULSE 96; RESP 18; TEMP 97.5; O2SAT 95
[2023-07-25] MEDS: ERTAPENEM SODIUM 1 GM/VIAL VIAL ONE (22:17)
[2023-07-25] MEDS: cefTRIAXone 1 GM VIAL ONE (22:26)
[2023-07-25] MEDS: cefTRIAXone 1 GM in D5W 50 ML IV SCH (22:26)
[2023-07-26] VITALS (8 sets, daily range): BP systolic 105–159; PULSE 78–101; RESP 15–20; TEMP 97.1–98.4; O2SAT 93–98
[2023-07-26] MEDS: LORazepam 2 MG/ML VIAL IVP PRN (04:49)
[2023-07-26] MEDS: 0.45% NACL 1,000 ML IV SCH (09:10)
[2023-07-26] MEDS: INSULIN GLARGINE 100 UNITS/ML, 10 ML VIAL SUBCUT SCH (09:22)
[2023-07-27] VITALS (7 sets, daily range): BP systolic 124–161; PULSE 63–101; RESP 16–20; TEMP 97.4–98.4; O2SAT 92–98
[2023-07-27 05:16] LABS: BASOPHILS % (AUTO) 0.3 % (0.0-2.0); EOSINOPHILS # (AUTO) 0.1 K/uL (0.0-0.4); EOSINOPHILS % (AUTO) 0.9 % (0.0-4.0); HEMATOCRIT 34.4 % (36-54); HEMOGLOBIN 11.5 g/dL (14.0-18.0); LYMPHOCYTES # (AUTO) 1.3 K/uL (1.0-5.5); LYMPHOCYTES % (AUTO) 10.1 % (20.5-51.5); MEAN CORPUSCULAR HEMOGLOBIN 28 pg (27-31); MEAN CORPUSCULAR HGB CONC 34 % (32-36); MEAN CORPUSCULAR VOLUME 82 fL (79.0-98.0); MONOCYTES # (AUTO) 1.3 K/uL (0.0-1.0); MONOCYTES % (AUTO) 9.9 % (1.7-9.3); NEUTROPHILS # (AUTO) 10.3 K/uL (1.8-7.7); NEUTROPHILS % (AUTO) 78.8 % (40.0-70.0); PLATELET COUNT (AUTO) 304 K/uL (130-430); RED BLOOD CELL COUNT(AUTO) 4.19 MIL/uL (4.2-6.2); RED CELL DISTRIBUTION WIDTH 13.9 % (9.0-15.0); WHITE BLOOD COUNT (AUTO) 13.1 K/uL (4.8-10.8)
[2023-07-27 05:49] LABS: ALANINE AMINOTRANSFERASE 71 U/L (12-78); ALBUMIN 2.5 g/dL (3.4-4.8); ANION GAP 11 (5-15); ASPARTATE AMINOTRANSFERASE 53 U/L (10-37); CARBON DIOXIDE 21 mmol/L (23-29); CHLORIDE 101 mmol/L (98-107); CREATININE 1.96 mg/dL (0.55-1.30); GLUCOSE 214 mg/dL (74-106); PHOSPHORUS 3.7 mg/dL (2.7-4.5); POTASSIUM 3.6 mmol/L (3.5-5.1); SODIUM SERUM 133 mmol/L (136-145); TOTAL BILIRUBIN 0.4 mg/dL (0.0-1.0); TOTAL PROTEIN, SERUM 6.9 g/dL (6.4-8.3); UREA NITROGEN, BLOOD 79 mg/dL (8-21)
[2023-07-28] VITALS (10 sets, daily range): BP systolic 149–162; PULSE 85–103; RESP 16–19; TEMP 97.9–98.6; O2SAT 92–97
[2023-07-28] MEDS: ALBUMIN HUMAN 25% 100 ML IV SCH (03:01)
[2023-07-28 05:23] LABS: BASOPHILS % (AUTO) 0.2 % (0.0-2.0); EOSINOPHILS # (AUTO) 0.2 K/uL (0.0-0.4); EOSINOPHILS % (AUTO) 1.1 % (0.0-4.0); HEMATOCRIT 30.6 % (36-54); HEMOGLOBIN 10.2 g/dL (14.0-18.0); LYMPHOCYTES # (AUTO) 1.2 K/uL (1.0-5.5); LYMPHOCYTES % (AUTO) 8.8 % (20.5-51.5); MEAN CORPUSCULAR HEMOGLOBIN 27 pg (27-31); MEAN CORPUSCULAR HGB CONC 33 % (32-36); MEAN CORPUSCULAR VOLUME 82 fL (79.0-98.0); MONOCYTES # (AUTO) 1.4 K/uL (0.0-1.0); MONOCYTES % (AUTO) 10.1 % (1.7-9.3); NEUTROPHILS # (AUTO) 11.3 K/uL (1.8-7.7); NEUTROPHILS % (AUTO) 79.8 % (40.0-70.0); PLATELET COUNT (AUTO) 295 K/uL (130-430); RED BLOOD CELL COUNT(AUTO) 3.71 MIL/uL (4.2-6.2); RED CELL DISTRIBUTION WIDTH 13.5 % (9.0-15.0); WHITE BLOOD COUNT (AUTO) 14.1 K/uL (4.8-10.8)
[2023-07-28 05:54] LABS: ANION GAP 11 (5-15); CALCIUM 8.7 mg/dL (8.4-11.0); CARBON DIOXIDE 22 mmol/L (23-29); CHLORIDE 100 mmol/L (98-107); CREATININE 1.67 mg/dL (0.55-1.30); GLUCOSE 213 mg/dL (74-106); PHOSPHORUS 3.6 mg/dL (2.7-4.5); POTASSIUM 3.5 mmol/L (3.5-5.1); SODIUM SERUM 133 mmol/L (136-145); UREA NITROGEN, BLOOD 63 mg/dL (8-21)
[2023-07-28] MEDS: ALBUMIN HUMAN 5% 500 ML IV ONE (16:26)
[2023-07-28] MEDS: hydrALAZINE HCL 10 MG TABLET PO PRN (20:43)
[2023-07-28] MEDS ORDERED: HYDR12.55 PO (20:44)
[2023-07-28] MEDS: IPRATROPIUM/ALBUTEROL SULFATE 3 ML AMPUL.NEB (DUONEB) ONE (21:54)
[2023-07-28] MEDS ORDERED: hydrALAZINE HCL 20 MG/ML VIAL IVP PRN (22:00)
[2023-07-28] MEDS ORDERED: IPRATROPIUM/ALBUTEROL SULFATE 3 ML AMPUL.NEB (DUONEB) INH PRN (22:00)
[2023-07-29] VITALS (36 sets, daily range): BP systolic 0–168; PULSE 0–121; RESP 0–34; TEMP 98–100.3; O2SAT 0–100
[2023-07-29] MEDS: AZITHROMYCIN 500 MG in NS 250 ML IV SCH (00:37)
[2023-07-29] MEDS ORDERED: SODIUM BICARBONATE 8.4% JECT 50 MEQ/50 ML SYRINGE ONE (03:55)
[2023-07-29] MEDS ORDERED: EPINEPHrine JECT 0.1 MG/ML SYR ONE (03:55)
[2023-07-29] MEDS: AZITHROMYCIN 500 MG/VIAL (ZITHROMAX) IV ONE (04:13)
[2023-07-29] MEDS ORDERED: PROPOFOL DRIP 100 ML IV PRN (04:30)
[2023-07-29] MEDS: SODIUM BICARBONATE 8.4% JECT 50 MEQ/50 ML SYRINGE IVP ONE (05:36)
[2023-07-29] MEDS: SODIUM BICARBONATE 8.4% JECT 150 MEQ in D5W 1,000 ML IVP SCH (05:37)
[2023-07-29] MEDS: SODIUM BICARBONATE 8.4% JECT 50 MEQ/50 ML SYRINGE ONE (05:37)
[2023-07-29 05:38] LABS: INR 1.1 (0.80-1.20); PROTHROMBIN TIME 11.7 SECS (9.5-12.5)
[2023-07-29] MEDS: NOREPINEPHRINE BITARTRATE 8 MG in NS 242 ML IV PRN (06:16)
[2023-07-29 06:19] LABS: BLOOD GAS PCO2 57.3 mmHg (32.0-45.0); BLOOD GAS PH 6.793 (7.350-7.450)
[2023-07-29] MEDS: NOREPINEPHRINE 4 MG/4 ML VIAL IV ONE (06:19)
[2023-07-29 06:20] LABS: ABG O2 SAT% ESTIMATE 86.2 % (94.0-100.0); ALLEN'S TEST POSITIVE (P); BLOOD GAS BASE EXCESS -26.8 mmol/L (-3.0-3.0); BLOOD GAS HCO3 8.6 mmol/L (21.0-27.0)
[2023-07-29] MEDS ORDERED: HEPARIN 25,000 UNITS/D5W 250ML 250 ML IV PRN (08:15)
[2023-07-29] MEDS ORDERED: *HEPARIN PER PHARMACY XX PRN (08:45)
[2023-07-29] MEDS ORDERED: HYDROCHLOROTHIAZIDE 12.5 MG CAPSULE (HCTZ) PO SCH (09:00)
[2023-07-29 09:02] LABS: ABG O2 SAT% ESTIMATE 88.3 % (94.0-100.0); BLOOD GAS PCO2 33.4 mmHg (32.0-45.0); BLOOD GAS PO2 64.8 mmHg (75.0-100.0)
[2023-07-29 09:20] LABS: BLOOD GAS PH 7.203 (7.350-7.450)
[2023-07-29 09:21] LABS: BLOOD GAS HCO3 12.8 mmol/L (21.0-27.0)
[2023-07-29] MEDS: PIPERACILLIN/TAZO 3.375 GM in NS 50 ML IV SCH (09:30)
[2023-07-29] MEDS ORDERED: HEPARIN SODIUM,PORCINE 3000 UNITS/0.6 ML BOLUS IVP PRN (09:45)
[2023-07-29] MEDS ORDERED: HEPARIN SODIUM,PORCINE 2000 UNITS/0.4 ML BOLUS IVP PRN (09:45)
[2023-07-29] MEDS: HEPARIN SODIUM,PORCINE 5,000 UNITS/ML VIAL IV ONE (10:35)
[2023-07-29] MEDS: NOREPINEPHR 8 MG/250 mL NS 250 ML IV PRN (11:27)
[2023-07-29 11:56] LABS: CKMB RELATIVE INDEX 6.3 (0.0-2.9); CREATINE KINASE MB 77.3 ng/mL (0-3.6)
[2023-07-29] MEDS: HEPARIN 25,000 UNITS/D5W 250ML 250 ML IV PRN (12:06)
[2023-07-29] MEDS: FUROSEMIDE 40 MG/4 ML VIAL IVP ONE ×2 (12:12→17:38)
[2023-07-29] MEDS ORDERED: NOREPINEPHRINE BITARTRATE 16 MG in NS 234 ML IV PRN (15:00)
[2023-07-29] MEDS: NOREPINEPHR 16 MG/250 mL NS 250 ML IV PRN (15:38)
[2023-07-29] MEDS: MORPHINE SULFATE IN 0.9 % NACL 100 ML IV PRN (20:53)
== END 2023-07-30 02:58 | DRG 562 ==
LOC: SED 17:28 → SMU 19:47 → STU 07-28 22:56 → SIC 07-29 03:30
PROVIDERS: ADMIT Specialist; ATTEND Specialist
PROC: 5A1935Z Respiratory Ventilation, Less than 24 Consecutive Hours (ICD-10-PCS; principal; 2023-07-29)
PROC: 0BH17EZ Insertion of Endotracheal Airway into Trachea, Via Natural or Artificial Opening (ICD-10-PCS; 2023-07-29)
DX: S42.214A Unspecified nondisplaced fracture of surgical neck of right humerus, initial encounter for closed fracture (principal); J96.01 Acute respiratory failure with hypoxia; N17.0 Acute kidney failure with tubular necrosis; N39.0 Urinary tract infection, site not specified; E78.5 Hyperlipidemia, unspecified; N40.0 Benign prostatic hyperplasia without lower urinary tract symptoms; I12.9 Hypertensive chronic kidney disease with stage 1 through stage 4 chronic kidney disease, or unspecified chronic kidney disease; I46.9 Cardiac arrest, cause unspecified; E11.22 Type 2 diabetes mellitus with diabetic chronic kidney disease; E88.09 Other disorders of plasma-protein metabolism, not elsewhere classified; N18.31 Chronic kidney disease, stage 3a; Z79.899 Other long term (current) drug therapy; B95.2 Enterococcus as the cause of diseases classified elsewhere; Z66 Do not resuscitate
CPT/HCPCS: 36415; 36600; 71045; 73030; 76770; 80048; 80053; 80076; 81000; 81001; 81015; 82550; 82553; 82565; 82803; 82948; 83735; 83970; 84100; 84302; 84484; 85025; 85379; 85610; 85730; 87081; 87086; 87186; 92950; 93005; 93306; 93970; 94002; 94640; 94760; 96374; 97110-GP; 97530-GP; 97760-GP; 99285; G0378; J0171; J0456; J0696; J1335; J1644; J1815; J1940; J2060; J2270; J2543; J7050; J7060; P9041; P9046